=== PATIENT | female | born 1990 | race Caucasian/White ===

== ENCOUNTER 2017-03-08 21:42 | Emergency (ER) | payer SELFPAY ==
--- NOTE | ~2017-03-08 | CR72 ---
[facility] A Service of [facility] & [facility] RADIOLOGY TEXT RESULTS PATIENT: PAULINA ABERNATHY LOCATION: [facility] : 88 UNIT #: [id number] AGE: [address]: Charly Disla MD SEX: F ORDER DR: [id number] [facility] [address] [place], [place] [address] [id number] E MR#: [id number] Acc #: [id number] NAME: PAULINA ABERNATHY : 1990 SEX: F STUDY DATE/TIME: 03/08/2017 21:09 UNIT: [facility] ROOM: STUDY DESCRIPTION: CR Chest Single View Portable Attending Physician: Charly Disla M.D. Ordering Physician: Young Novak M.D. Primary Care Physician: No Primary Care Physician MEDICAL IMAGING REPORT This report is preliminary unless electronic signature is present EXAM AP portable chest, 03/08/2017 HISTORY 26-year-old female in the ED complaining of 2-day history of chest pain and shortness of air. TECHNIQUE AP portable chest x-ray. FINDINGS Heart size and pulmonary vascularity are within normal limits. The lungs are expanded and clear. No visible pulmonary infiltrate or pleural effusion. No change since the recent study of 03/02/2017. IMPRESSION Negative chest. No change since 03/02/2017. Dictated by... Gerald Conrad M.D. THIS IS AN ELECTRONICALLY VERIFIED REPORT Gerald Conrad M.D. at 03/11/2017 5:59 AM CARROLL/harriet TD: 03/09/2017 17:48 JOB #: [id number] MEDICAL IMAGING REPORT Page 1 of 1 COPY
--- NOTE | ~2017-03-08 | EKG ---
PATIENT: PAULINA ABERNATHY UNIT #: [id number] Ventricular Rate: 77 BPM Atrial Rate: 77 BPM P-R Interval: 144 ms QRS Duration: 88 ms Q-T Interval: 402 ms QTC Calculation(Bezet): 454 ms P [place]: 33 degrees Calculated R [place]: 12 degrees Calculated T [place]: 29 degrees Diagnosis Line: Normal sinus rhythm Diagnosis Line: Low voltage QRS Diagnosis Line: Borderline ECG Diagnosis Line: No previous ECGs available Diagnosis Line: Confirmed by SALINA SINGER MD ([id number]) on 03/10/2017 Diagnosis Line: 7:09:45 AM INTERPRETING MD: LUCRECIA LEWIS
[2017-03-08 20:59] LABS: BASOPHIL# 0.1 X10e3 (0-0.3); BASOPHIL% 1.2 % (0-2.5); EOSINOPHIL# 0.3 X10e3 (0-0.7); EOSINOPHIL% 3.3 % (0.0-7.0); HEMATOCRIT 36.6 % (35.0-45.0); LYMPHOCYTE# 3.6 X10e3 (1.0-3.5); LYMPHOCYTE% 39.2 % (17.0-45.0); MEAN CORPUSCULAR HEMOGLOBIN 27.6 PG (28-34); MEAN CORPUSCULAR HGB CONC 32.9 g/dL (30-36); MEAN PLATELET VOLUME 7.6 FL (6.5-11.5); MONOCYTE# 0.6 X10e3 (0-1.0); MONOCYTE% 6.4 % (3.0-12.0); NEUTROPHIL# 4.6 X10e3 (1.5-7.1); NEUTROPHIL% 49.9 % (40-75); PLATELET COUNT 275 X10e3 (140-420); RED BLOOD COUNT 4.35 X10e (3.90-5.30); RED CELL DISTRIBUTION WIDTH 13.9 % (11.0-15.5); WHITE BLOOD COUNT 9.1 X10e3 (4.0-10.5)
[2017-03-08 21:08] LABS: DIFF IND NO
[2017-03-08 21:31] LABS: ALBUMIN SERUM 3.7 g/dL (3.5-5.0); BILIRUBIN, DIRECT 0.1 mg/dL (0.0-0.2); BILIRUBIN,INDIRECT 0.2 mg/dL (0.0-0.9); BILIRUBIN,TOTAL 0.3 mg/dL (0.2-2.0); BUN/CREATININE RATIO 16.25; CALCIUM SERUM 8.9 mg/dL (8.4-10.2); CREATININE SERUM 0.8 mg/dL (0.6-1.4); GLOM FILT RATE Estimated 101.1 mL/min (>60); POTASSIUM 3.8 mmol/L (3.5-5.1); PROTEIN TOTAL SERUM 7.4 g/dL (6.0-8.3)
== END 2017-03-08 21:48 | disposition home or self-care (01) ==
LOC: CED 21:42
PROVIDERS: Emergency Medicine
DX: R06.02 Shortness of breath (principal); E11.9 Type 2 diabetes mellitus without complications; I10 Essential (primary) hypertension; Z88.8 Allergy status to other drugs, medicaments and biological substances
CPT/HCPCS: 36415; 71010; 80048; 80076; 85025; 93005; 99284

== ENCOUNTER 2017-04-19 21:16 | Emergency (ER) | payer OTHER | END 2017-04-19 23:49 | disposition home or self-care (01) | LOC: CED 21:16 | DX: L03.115 Cellulitis of right lower limb (principal); I10 Essential (primary) hypertension; Z88.8 Allergy status to other drugs, medicaments and biological substances | CPT/HCPCS: 90471; 90715; 96372; 99283 ==